=== PATIENT | male | born 1980 | race Caucasian/White ===

== ENCOUNTER 2017-04-11 05:14 | Emergency (ER) | payer SELFPAY | END 2017-04-11 05:52 | disposition home or self-care (01) | LOC: D.ER 05:14 | DX: H60.501 Unspecified acute noninfective otitis externa, right ear (principal) ==

== ENCOUNTER 2017-05-20 03:52 | Emergency (ER) | payer SELFPAY ==
[2017-05-20 04:27] LABS: BASOPHILS 0.2 % (0-2); EOSINOPHILS 0 % (0-7); HEMATOCRIT 49.9 % (42.0-54.0); HEMOGLOBIN 17.5 g/dL (13.5-17.5); IMMATURE GRANULOCYTES 0.5 % (0-5); LYMPHOCYTES 2.6 % (15-50); MCH 31.6 pg (26.0-34.0); MCHC 35.1 g/dL (31.0-37.0); MCV 90.2 fL (80.0-100.0); MEAN PLATELET VOLUME 10.1 fL (7.4-10.4); MONOCYTES 3.3 % (2-11); NEUTROPHILS 93.4 % (40-80); PLATELET COUNT 338 10x3/uL (130-400); RBC 5.53 10x6/uL (4.20-6.10); WBC 24.5 10x3/uL (4.8-10.8)
[2017-05-20 04:28] LABS: ALBUMIN 4.9 g/dL (3.4-5.0); ANION GAP 23.3 mmol/L (8-16); BILIRUBIN - TOTAL 0.48 mg/dL (0.2-1.3); CALCIUM 10.6 mg/dL (8.5-10.1); CARBON DIOXIDE 18.5 mmol/L (21.0-32.0); CREATININE - SERUM 1.8 mg/dL (0.6-1.3); POTASSIUM - SERUM 4.8 mmol/L (3.5-5.1); PROTEIN - SERUM 9.9 g/dL (6.4-8.2)
[2017-05-20 05:34] LABS: APPEARANCE HAZY (CLEAR); COLOR DK YELLOW (YELLOW); GLUCOSE NEGATIVE (NEGATIVE); KETONE NEGATIVE (NEGATIVE); NITRITE NEGATIVE (NEGATIVE); PROTEIN TRACE mg/dL (NEGATIVE); UROBILINOGEN NORMAL (NORMAL)
[2017-05-20 05:35] LABS: BACTERIA NONE SEEN /hpf (NONE SEEN); BILIRUBIN 2+ (NEGATIVE); EPITHELIAL CELLS RARE /hpf (0-5); WHITE CELLS - URINE RARE /hpf (0-5)
== END 2017-05-20 07:12 | disposition home or self-care (01) ==
LOC: D.ER 03:52
PROVIDERS: Emergency Medicine
DX: R73.9 Hyperglycemia, unspecified (principal); R79.89 Other specified abnormal findings of blood chemistry; E86.0 Dehydration; A08.4 Viral intestinal infection, unspecified; F17.200 Nicotine dependence, unspecified, uncomplicated

== ENCOUNTER 2018-12-29 06:11 | Emergency (ER) | payer SELFPAY ==
[~2018-12-29] VITALS: Ht 167.6 cm; Wt 84.1 kg
[2018-12-29 06:15] VITALS: Ht 167.6 cm; Wt 84.1 kg
[2018-12-29 06:41] LABS: BASOPHILS 0.4 % (0-2); EOSINOPHILS 0.8 % (0-7); HEMOGLOBIN 15.7 g/dL (13.5-17.5); IMMATURE GRANULOCYTES 0.3 % (0-5); LYMPHOCYTES 22.5 % (15-50); MCH 31.5 pg (26.0-34.0); MCHC 35.7 g/dL (31.0-37.0); MCV 88.2 fL (80.0-100.0); MEAN PLATELET VOLUME 10.3 fL (7.4-10.4); MONOCYTES 6.8 % (2-11); NEUTROPHILS 69.2 % (40-80); PLATELET COUNT 287 10x3/uL (130-400); RBC 4.99 10x6/uL (4.20-6.10); RDW 13.9 % (11.5-14.5)
[2018-12-29 06:55] LABS: ALBUMIN 4.4 g/dL (3.4-5.0); ANION GAP 15.6 mmol/L (8-16); BILIRUBIN - TOTAL 0.46 mg/dL (0.2-1.3); CALCIUM 9.8 mg/dL (8.5-10.1); CREATININE - SERUM 1.2 mg/dL (0.6-1.3); POTASSIUM - SERUM 3.6 mmol/L (3.5-5.1); PROTEIN - SERUM 8.7 g/dL (6.4-8.2)
[2018-12-29 06:56] LABS: AMORPHOUS SEDIMENT <1+ /lpf (NONE SEEN); APPEARANCE CLEAR (CLEAR); BILIRUBIN NEGATIVE (NEGATIVE); COLOR STRAW (YELLOW); EPITHELIAL CELLS 0-5 /hpf (0-5); GLUCOSE NEGATIVE (NEGATIVE); KETONE NEGATIVE (NEGATIVE); NITRITE NEGATIVE (NEGATIVE); PROTEIN NEGATIVE (NEGATIVE); SPECIFIC GRAVITY 1.005 (1.005-1.020); UROBILINOGEN NORMAL (NORMAL); WHITE CELLS - URINE 0-5 /hpf (0-5)
[2018-12-29] MEDS ORDERED: DOXYCYCLINE HY100 M2 PO (08:20)
[2018-12-29] MEDS ORDERED: SPRINTEC 28 DA1 EAC1 PO (08:22)
[2018-12-29] MEDS ORDERED: FLOMAX0.4 MG PO (09:37)
[2018-12-29] MEDS ORDERED: HYDROCODON-ACE1 EA10 PO (09:38)
[2018-12-29 09:50] VITALS: BP 115/68
== END 2018-12-29 09:52 | disposition home or self-care (01) ==
LOC: D.ER 06:11
PROVIDERS: Emergency Medicine
DX: N13.2 Hydronephrosis with renal and ureteral calculous obstruction (principal)